=== PATIENT | female | born 1975 ===

== ENCOUNTER 2022-07-01 11:04 | Outpatient (CLI) | payer OTHER | END 2022-07-01 11:06 | disposition home or self-care (01) | LOC: SONOGRAMA 11:04 | PROVIDERS: ATTEND Pathology Anatomic Pathology & Clinical Pathology | DX: E04.2 Nontoxic multinodular goiter (principal); D34 Benign neoplasm of thyroid gland; E04.9 Nontoxic goiter, unspecified ==